=== PATIENT | female | born 1950 | race Caucasian/White ===

== ENCOUNTER 2022-05-01 07:47 | Emergency (ER) | payer OTHER ==
--- OUTSIDE RECORDS SUMMARY | 2022-05-01 08:01 | XMS REPORT | Continuity of Care Document ---
:1950 Author Organization [facility] t Address [facility] [place] [address] Care Team Providers Name Role Phone STEWART GRANDA Primary Care Physician Unavailable KJ GAMEZ K.HYamilka Attending Clinician Unavailable FARHAD MATOS Attending Clinician Unavailable FARHAD MATOS Attending Clinician Unavailable Kj Gamez MD K.H. Attending Clinician Doctor Unassigned, [place] Attending Clinician Unavailable DORINA LUIS M.D. Attending Clinician Unavailable RADIOLOGY Attending Clinician Unavailable Radiology Attending Clinician Unavailable MONIKA LAYNE M.D. Attending Clinician Unavailable DR JOCELYN DEL TORO Attending Clinician Unavailable DORINA LUIS Admitting Clinician Unavailable DR JOCELYN DEL TORO Admitting Clinician Unavailable Payers Payer Name Policy Type Policy Number Effective Date Expiration Date S kelly [employer] MANAGED [id number] 2020 MEDICARE PPO-RODRIGO 00:00:00 Problems Condition Condition Condition Status Onset Resolution Last Treating Co mments Source Name Details Category Date Date Treatment Clinician Date No known No known Disease Unive rs active active ity of problems problems [facility] Amaurosis Amaurosis Problem Active [facility] fugax of [place] of Physic i right eye right eye ans Blurry Blurry Problem Active [facility] vision vision Physici ans TIA TIA Problem Active [facility] (transient (transient Ph ysici ischemic ischemic ans attack) attack) Allergies, Adverse Reactions, Alerts Allergy Allergy Status Severity Reaction(s) Onset Inactive Treating Comm ents Source Name Type Date Date Clinician PROPOXYP DRUG Active Other-Cmnt Univ ers HENE HCL INGREDI 6-14 ity of 00:00: [place] 00 Medical Branch Propoxyp Propensi Active Other - See U nivers hene Hcl ty to comments 09-26 ity of adverse 00:00: [place] reaction 00 Medical s Branch Darvon Allergy Active [facility] to drug Physici (finding ans ) Social History Social Habit Start Date Stop Date Quantity Comments Source Exposure to Not sure [facility]-CoV-2 [facility] (event) [place] Tobacco use and 2020-07-20 2020-07-20 Never used Universit y of exposure 00:00:00 00:00:00 [facility] Alcohol intake 2020-07-20 2020-07-20 Current drinker Unive rsity of 00:00:00 00:00:00 of alcohol [facility] (finding) [place] Alcohol Comment 2016-09-26 2016-09-26 Approx. 3 Universit y of 00:00:00 00:00:00 glasses of wine [place] Med ical daily Branch Sex Assigned At [birth year] Universit y of 00:00:00 00:00:00 [facility] Smoking Status Start Date Stop Date Source Never smoker [facility] Medications Ordered Filled Start Stop Current Ordering Indication Dosage Frequency Signature Comments Components Source Medication Medication Date Date Medication? Clinician (SIG) Name Name lisinopril Yes 30mg Take 30 mg U nivers 30 mg 5-19 by mouth ity of tablet 14:48: daily. [address] lisinopril Yes 30mg Take 30 mg U nivers 30 mg 5-19 by mouth ity of tablet 14:48: daily. [address] aspirin 81 Yes 81mg Take 81 mg U nivers mg EC 5-19 by mouth ity of tablet 14:48: daily. [address] aspirin 81 Yes 81mg Take 81 mg U nivers mg EC 5-19 by mouth ity of tablet 14:48: daily. [address] omega-3s-dh Yes Take by Uni vers a-epa-fish 5-19 mouth. ity of oil 14:48: [place] (OMEGA-3 00 [facility] FISH OIL) Branch 300-1,000 mg Cap omega-3s-dh Yes Take by Uni vers a-epa-fish 5-19 mouth. ity of oil 14:48: [place] (OMEGA-3 00 Medical FISH OIL) Branch 300-1,000 mg Cap tc 2020- No [id number] 42.2mCi 42.2 Unive rs 99m-tetrofo 08-23 millicurie i ty of smin 17:15: 17:12 , [place] ([facility]) 00 :00 Intravenou Medi lila injection s, ONCE, 1 Bran ch 42.2 dose, Tue millicurie 08/23/20 at 1215, Routine tc 2020- No [id number] 16.5mCi 16.5 Univ ers 99m-tetrofo 08-23 millicurie i ty of smin 15:30: 15:20 , [place] ([facility]) 00 :00 Intravenou Medi lila injection s, ONCE, 1 Bran ch 16.5 dose, Tue millicurie 08/23/20 at 1030, Routine lisinopril Yes 30mg Take 30 mg U nivers 30 mg 4-07 by mouth ity of tablet 16:51: daily. [place] [facility] levothyroxi Yes 50ug Take 50 Uni vers ne 50 mcg 4-07 mcg by ity of tablet 16:51: mouth every Medical morning. Branch busPIRone Yes 10mg Take 10 mg Un drake 10 mg 4-07 by mouth 2 ity of tablet 16:51: (two) [place] 02 times Medical daily. Branch aspirin 81 0 Yes 81mg Take 81 mg U nivers mg EC 4-07 by mouth ity of tablet 16:51: daily. [place] [address] Medical Branch lisinopril Yes 30mg Take 30 mg U nivers 30 mg 4-07 by mouth ity of tablet 16:51: daily. [place] [address] Medical Branch levothyroxi Yes 50ug Take 50 Uni vers ne 50 mcg 4-07 mcg by ity of tablet 16:51: mouth 02 every Medical morning. Branch busPIRone Yes 10mg Take 10 mg Un drake 10 mg 4-07 by mouth 2 ity of tablet 16:51: (two) [place] 02 times Medical daily. Branch aspirin 81 0 Yes 81mg Take 81 mg U nivers mg EC 4-07 by mouth ity of tablet 16:51: daily. Medical Branch lisinopril 0 Yes 30mg Take 30 mg U nivers 30 mg 4-07 by mouth ity of tablet 16:51: daily. Medical Branch levothyroxi 0 Yes 50ug Take 50 Uni vers ne 50 mcg 4-07 mcg by ity of tablet 16:51: mouth [place] 02 every Medical morning. Branch busPIRone 0 Yes 10mg Take 10 mg Un drake 10 mg 4-07 by mouth 2 ity of tablet 16:51: (two) [place] 02 times Medical daily. Branch aspirin 81 0 Yes 81mg Take 81 mg U nivers mg EC 4-07 by mouth ity of tablet 16:51: daily. Medical Branch lisinopril 0 Yes 30mg Take 30 mg U nivers 30 mg 4-07 by mouth ity of tablet 16:51: daily. Medical Branch levothyroxi 0 Yes 50ug Take 50 Uni vers ne 50 mcg 4-07 mcg by ity of tablet 16:51: mouth [place] 02 every Medical morning. Branch busPIRone 0 Yes 10mg Take 10 mg Un drake 10 mg 4-07 by mouth 2 ity of tablet 16:51: (two) [place] 02 times Medical daily. Branch aspirin 81 0 Yes 81mg Take 81 mg U nivers mg EC 4-07 by mouth ity of tablet 16:51: daily. Medical Branch lisinopril 0 Yes 30mg Take 30 mg U nivers 30 mg 4-07 by mouth ity of tablet 16:51: daily. Medical Branch levothyroxi 0 Yes 50ug Take 50 Uni vers ne 50 mcg 4-07 mcg by ity of tablet 16:51: mouth [place] 02 every Medical morning. Branch busPIRone 2020-0 Yes 10mg Take 10 mg Un drake 10 mg 4-07 by mouth 2 ity of tablet 16:51: (two) [place] 02 times Medical daily. Branch aspirin 81 0 Yes 81mg Take 81 mg U nivers mg EC 4-07 by mouth ity of tablet 16:51: daily. Medical Branch lisinopril 2021-0 Yes 30mg Take 30 mg U nivers 30 mg 4-07 by mouth ity of tablet 16:51: daily. Medical Branch levothyroxi 0 Yes 50ug Take 50 Uni vers ne 50 mcg 4-07 mcg by ity of tablet 16:51: mouth [place] 02 every Medical morning. Branch busPIRone 0 Yes 10mg Take 10 mg Un drake 10 mg 4-07 by mouth 2 ity of tablet 16:51: (two) [place] 02 times Medical daily. Branch aspirin 81 0 Yes 81mg Take 81 mg U nivers mg EC 4-07 by mouth ity of tablet 16:51: daily. Medical Branch lisinopril 0 Yes 30mg Take 30 mg U nivers 30 mg 4-07 by mouth ity of tablet 16:51: daily. Medical Branch levothyroxi Yes 50ug Take 50 Uni vers ne 50 mcg 4-07 mcg by ity of tablet 16:51: mouth every Medical morning. Branch busPIRone 0 Yes 10mg Take 10 mg Un drake 10 mg 4-07 by mouth 2 ity of tablet 16:51: (two) [place] times Medical daily. Branch aspirin 81 0 Yes 81mg Take 81 mg U nivers mg EC 4-07 by mouth ity of tablet 16:51: daily. Medical Branch lisinopril Yes 30mg Take 30 mg U nivers 30 mg 4-07 by mouth ity of tablet 16:51: daily. Medical Branch levothyroxi Yes 50ug Take 50 Uni vers ne 50 mcg 4-07 mcg by ity of tablet 16:51: mouth [place] 02 every Medical morning. Branch busPIRone 0 Yes 10mg Take 10 mg Un drake 10 mg 4-07 by mouth 2 ity of tablet 16:51: (two) [place] 02 times Medical daily. Branch aspirin 81 0 Yes 81mg Take 81 mg U nivers mg EC 4-07 by mouth ity of tablet 16:51: daily. Medical Branch lisinopril 0 Yes 30mg Take 30 mg U nivers 30 mg 4-07 by mouth ity of tablet 16:51: daily. Medical Branch levothyroxi 0 Yes 50ug Take 50 Uni vers ne 50 mcg 4-07 mcg by ity of tablet 16:51: mouth [place] 02 every Medical morning. Branch busPIRone 0 Yes 10mg Take 10 mg Un drake 10 mg 4-07 by mouth 2 ity of tablet 16:51: (two) [place] 02 times Medical daily. Branch aspirin 81 2020-0 Yes 81mg Take 81 mg U nivers mg EC 4-07 by mouth ity of tablet 16:51: daily. Medical Branch lisinopril 0 Yes 30mg Take 30 mg U nivers 30 mg 4-07 by mouth ity of tablet 16:51: daily. Medical Branch levothyroxi 0 Yes 50ug Take 50 Uni vers ne 50 mcg 4-07 mcg by ity of tablet 16:51: mouth [place] 02 every Medical morning. Branch busPIRone 0 Yes 10mg Take 10 mg Un drake 10 mg 4-07 by mouth 2 ity of tablet 16:51: (two) [place] 02 times Medical daily. Branch aspirin 81 0 Yes 81mg Take 81 mg U nivers mg EC 4-07 by mouth ity of tablet 16:51: daily. Medical Branch levothyroxi 0 Yes 50ug Take 50 Uni vers ne 50 mcg 4-07 mcg by ity of tablet 16:51: mouth [place] 02 every Medical morning. Branch busPIRone 2020-0 Yes 10mg Take 10 mg Un drake 10 mg 4-07 by mouth 2 ity of tablet 16:51: (two) [place] 02 times Medical daily. Branch levothyroxi 2020-0 Yes 50ug Take 50 Uni vers ne 50 mcg 4-07 mcg by ity of tablet 16:51: mouth [place] 02 every Medical morning. Branch busPIRone 2020-0 Yes 10mg Take 10 mg Un drake 10 mg 4-07 by mouth 2 ity of tablet 16:51: (two) [place] 02 times Medical daily. Branch atorvastati 2020-0 Yes 40mg Take 40 mg Univers n 40 mg 2-08 by mouth. ity of tablet 00:00: [place] [facility] atorvastati 2020-0 Yes 40mg Take 40 mg Univers n 40 mg 2-08 by mouth. ity of tablet 00:00: [facility] atorvastati 0 Yes 40mg Take 40 mg Univers n 40 mg 2-08 by mouth. ity of tablet 00:00: [facility] atorvastati 0 Yes 40mg Take 40 mg Univers n 40 mg 2-08 by mouth. ity of tablet 00:00: [facility] atorvastati 2020-0 Yes 40mg Take 40 mg Univers n 40 mg 2-08 by mouth. ity of tablet 00:00: [facility] atorvastati 0 Yes 40mg Take 40 mg Univers n 40 mg 2-08 by mouth. ity of tablet 00:00: [place] [facility] atorvastati 0 Yes 40mg Take 40 mg Univers n 40 mg 2-08 by mouth. ity of tablet 00:00: [facility] atorvastati 0 Yes 40mg Take 40 mg Univers n 40 mg 2-08 by mouth. ity of tablet 00:00: [facility] atorvastati 0 Yes 40mg Take 40 mg Univers n 40 mg 2-08 by mouth. ity of tablet 00:00: [facility] atorvastati 0 Yes 40mg Take 40 mg Univers n 40 mg 2-08 by mouth. ity of tablet 00:00: [facility] atorvastati 0 Yes 40mg Take 40 mg Univers n 40 mg 2-08 by mouth. ity of tablet 00:00: [facility] atorvastati 0 Yes 40mg Take 40 mg Univers n 40 mg 2-08 by mouth. ity of tablet 00:00: [facility] gadobenate 0 2020- No .2mL/kg 0.2 mL/kg, Univers dimeglumine 07-14 Intravenou i ty of (MULTIHANCE 14:30: 14:30 s, ONCE, 1 [place] -20 mL) 00 :00 dose, Wed Medical injection 07/15/19 at Bran h 0.2 mL/kg 0930, Routine Lisinopril Lisinopril 2019-0 Yes 1 QD TAKE 1 UT 40 MG Oral 40 MG Oral 3-10 TABLET P hysici Tablet Tablet 00:00: DAILY ans 00 Levothyroxi Levothyroxi Yes 1 QD TAKE 1 UT ne Sodium ne Sodium 3-10 TABLET Phy sici 50 MCG Oral 50 MCG Oral 00:00: DAILY. ans Tablet Tablet 00 Atorvastati Atorvastati Yes DORINA TAKE ONE UT n Calcium n Calcium 3-10 RUSSEL [place] TABLET BY Physici 40 MG Oral 40 MG Oral 00:00: MOUTH AT ans Tablet Tablet 00 BEDTIME aspirin 81 Yes 81mg Take 81 mg U nivers mg EC 6-16 by mouth ity of tablet 15:53: daily. [address] lisinopril Yes 30mg Take 30 mg U nivers 30 mg 6-16 by mouth ity of tablet 15:53: daily. [address] levothyroxi Yes 50ug Take 50 Uni vers ne 50 mcg 6-16 mcg by ity of tablet 15:53: mouth [place] [address] every Medical morning. Branch busPIRone Yes 10mg Take 10 mg Un drake 10 mg 6-16 by mouth 2 ity of tablet 15:53: (two) [place] 35 times Medical daily. Branch aspirin 81 Yes 81mg Take 81 mg U nivers mg EC 6-16 by mouth ity of tablet 15:53: daily. [address] lisinopril Yes 30mg Take 30 mg U nivers 30 mg 6-16 by mouth ity of tablet 15:53: daily. [address] levothyroxi Yes 50ug Take 50 Uni vers ne 50 mcg 6-16 mcg by ity of tablet 15:53: mouth [place] [address] every Medical morning. Branch busPIRone 2017 Yes 10mg Take 10 mg Un drake 10 mg 6-16 by mouth 2 ity of tablet 15:53: (two) [place] 35 times Medical daily. Branch aspirin 81 Yes 81mg Take 81 mg U nivers mg EC 6-16 by mouth ity of tablet 15:53: daily. [address] lisinopril Yes 30mg Take 30 mg U nivers 30 mg 6-16 by mouth ity of tablet 15:53: daily. [address] levothyroxi Yes 50ug Take 50 Uni vers ne 50 mcg 6-16 mcg by ity of tablet 15:53: mouth [place] 35 every Medical morning. Branch busPIRone Yes 10mg Take 10 mg Un drake 10 mg 6-16 by mouth 2 ity of tablet 15:53: (two) [place] 35 times Medical daily. Branch aspirin 81 Yes 81mg Take 81 mg U nivers mg EC 6-16 by mouth ity of tablet 15:53: daily. [address] lisinopril Yes 30mg Take 30 mg U nivers 30 mg 6-16 by mouth ity of tablet 15:53: daily. [address] levothyroxi Yes 50ug Take 50 Uni vers ne 50 mcg 6-16 mcg by ity of tablet 15:53: mouth [place] 35 every Medical morning. Branch busPIRone Yes 10mg Take 10 mg Un drake 10 mg 6-16 by mouth 2 ity of tablet 15:53: (two) [place] 35 times Medical daily. Branch Vital Signs Vital Name Observation Time Observation Value Comments Source Systolic blood 2020-08-31 125 mm[Hg] University of pressure 14:45:00 [facility] Diastolic blood 2020-08-31 73 mm[Hg] University o f pressure 14:45:00 [facility] Heart rate 2020-08-31 65 /min [facility] 14:45:00 [facility] Respiratory rate 2020-08-31 18 /min [facility] 14:45:00 [facility] Body height 2020-08-31 165.1 cm University 14:45:00 [facility] Body weight 2020-08-31 111.403 kg University 14:45:00 [facility] BMI 2020-08-31 40.87 kg/m2 University 14:45:00 [facility] Oxygen saturation 2020-08-31 95 /min [facility] in Arterial blood 14:45:00 [facility] [place] [facility] by Pulse oximetry Branch Systolic blood 2020-07-20 124 mm[Hg] University of pressure 20:54:00 [facility] Diastolic blood 2020-07-20 85 mm[Hg] University o f pressure 20:54:00 [facility] Heart rate 2020-07-20 85 /min [facility] 20:54:00 [facility] Body weight 2020-07-20 111.177 kg University of 20:54:00 [facility] BMI 2020-07-20 40.79 kg/m2 [facility] 20:54:00 [facility] Oxygen saturation 2020-07-20 97 /min [facility] in Arterial blood 20:54:00 [facility] [place] [facility] by Pulse oximetry Branch Systolic blood 2019-06-23 98 mm[Hg] Location: [facility] Physicia ns pressure 08:31:00 Position: Sitting Diastolic blood 2019-06-23 65 mm[Hg] Location: [facility] Physici ans pressure 08:31:00 Position: Sitting Body height 2019-06-23 65 [in_us] [facility] 08:31:00 Weight 2019-06-23 245 [lb_av] [facility] 08:31:00 Body mass index 2019-06-23 40.77 kg/m2 [facility] Physician s (BMI) [Ratio] 08:31:00 Heart Rate 2019-06-23 76 /min [facility] 08:31:00 Procedures Procedure Date / Time Performing Clinician Source Performed [place] MYOCARDIUM PERFUSION 2020-08-23 18:52:00 Franco, Sendmarycarmen [facility] STRESS AND REST Medical Branch NM MYOCARDIUM PERFUSION 2020-08-23 18:52:00 Gamez, Sendil [facility] STRESS AND REST Medical Branch [place] MYOCARDIUM PERFUSION 2020-08-23 18:52:00 Gamez, Sendil [facility] STRESS AND REST Medical Branch [place] MYOCARDIUM PERFUSION 2020-08-23 18:52:00 Gamez, Sendil [facility] STRESS AND REST Medical Branch [place] ELECTROCARDIOGRAM, 2020-07-20 16:55:18 Franco, [facility]il [facility] REFERRAL- 2020-06-20 06:01:00 [facility] REQUEST[facility]RESPONSE Name Medical Branch MR ANGIOGRAM HEAD WO 2019-09-10 15:22:39 Dorina Luis [facility] CONTRAST Medical Branch ASSIGNMENT OF BENEFITS 2019-09-10 14:26:53 Doctor Unassigned, No [facility] Name [facility] Branch [QL] LIPID PANEL 2019-07-29 00:00:00 [facility] Physicia ns MR BRAIN W WO CONTRAST 2019-07-15 15:12:44 Dorina Luis [facility] [UTP] Neurosonology Lab 2019-06-23 00:00:00 [facility] P hysicians [QLH] SED RATE BY 2019-06-23 00:00:00 [facility] Physici ans MODIFIED WESTERGREN [QLH] C-REACTIVE PROTEIN 2019-06-23 00:00:00 [facility] MRI Brain w/wo contrast 2019-06-23 00:00:00 [facility] P hysicians [id number] MRA Brain without 2019-06-23 00:00:00 [facility] Physici ans contrast [id number] [QL] SED RATE BY 2019-06-23 00:00:00 [facility] Physicia ns MODIFIED WESTERGREN Plan of Care Planned Activity Planned Date Details Comments Source Diagnostic Test 2019-06-23 [UTP] Neurosonology [facility] Pending 00:00:00 Lab [code = [UTP] Neurosonology Lab] Future Scheduled MRA Brain without Before next [facility] Test contrast [id number] [code appointment = 24738] Future Scheduled MRA Brain without Approx [id number] [facility] Test contrast [id number] [code = 28302] Future Scheduled [QL] LIPID PANEL Approx [id number] [facility] Test [code = [QL] LIPID PANEL] Future Scheduled [QL] LIPID PANEL Approx [id number] [facility] Test [code = [QL] LIPID PANEL] Encounters Start End Encounter Admission Attending Care Care Encounter Source Date/Time Date/Time Type Type Clinicians Facility Department ID 2021-08-31 2021-08-31 Outpatient Chelsea GAMEZ [facility] [id number] Univers 10:00:00 10:00:00 SENDIL [facility] [place] [facility] 2021-08-15 2021-08-15 Outpatient Chelsea GAMEZ [facility] [id number] Univers 09:00:00 09:00:00 [facility] 2020-12-02 2020-12-02 Outpatient FARHAD GRAYSON [facility] [id number] Univers 13:00:00 13:00:00 FARHAD MATOS i ty [facility] 2020-10-14 2020-10-14 Outpatient R FARHAD MATOS [facility] [id number] Univers 09:00:00 09:00:00 FARHAD MATOS i ty [facility] 2020-08-31 2020-08-31 Office Franco [facility] [id number] Univers 09:36:47 10:08:58 Visit Sendil [place] [id number] it[place] [id number] [phone] Mn dical [facility] 059 Branch [facility] 2020-08-31 2020-08-31 [facility] [id number] Univers 09:30:00 09:30:00 SENDIL ity of [facility] 2020-08-23 2020-08-23 [facility] [id number] Univers 09:05:51 09:05:51 Encounter Sendil Andrew [place] [id number] [id number] [phone] [address] 2020-08-23 2020-08-23 [facility] [id number] Univers 09:04:58 09:04:58 Encounter Sendil Andrew [place] [id number] [place] [id number] [id number] [address] 2020-08-23 2020-08-23 [facility] [id number] Univers 09:03:22 09:03:22 Encounter Sendil Adnrew [place] [id number] it[place] [id number] [phone] [address] 2020-08-23 2020-08-23 [facility] [id number] Univers 08:59:35 09:02:00 Encounter Sendil Andrew [place] [id number] [place] [id number] [phone] [address] 2020-08-23 2020-08-23 Outpatient [facility] [id number] Univers 08:59:35 09:02:00 SENDIL ity of [facility] 2020-08-10 2020-08-10 [facility] [id number] Univers 08:00:00 08:00:00 SENDIL ity [facility] 2020-07-29 2020-07-29 [facility] [id number] Univers 00:00:00 00:00:00 Sendil Adnrew Valderrama [id number] [id number] [phone] Mn dical nal [address] [place] [address] 2020-07-20 2020-07-20 [facility] [id number] Univers 11:43:06 12:24:34 Visit Sendil Andrew Valderrama [id number] [place] [id number] [phone] Mn dical nal [address] [place] [address] 2020-07-20 2020-07-20 Outpatient R FRANCO [facility] [id number] Univers 11:30:00 11:30:00 SENDIL ity [facility] 2020-06-20 2020-06-20 Orders Doctor OSMAR [id number] Univers 00:00:00 00:00:00 Only Unassigned, [place] [id number] ity of [place] [facility] [id number] Paul as [phone] [address] 2020-06-19 2020-06-19 Outpatient [facility] [id number] Univers 13:30:00 13:30:00 ity of [facility] 2019-11-03 2019-11-03 Appointmen RUSSEL [facility] Neurology - [id number] [place] 14:30:00 14:30:00 t; DORINA LUIS [place] [facility] CHRISTINA, M.D. [facility] 2019-09-10 2019-09-10 Outpatient R RADIOLOGY [facility] [id number] Univers 09:33:46 23:59:00 ity of [facility] 2019-09-10 2019-09-10 Hospital Radiology [facility] [id number] Univers 09:33:00 23:59:00 Encounter [place] [id number] it[place] [id number] [phone] [facility] 804 [place] 2019-09-10 2019-09-10 [facility] Radiology [facility] [id number] 09:33:00 23:59:00 Encounter [place] [id number] [place] [id number] [place] [id number] [id number] 2019-09-10 2019-09-10 Orders Doctor OSMAR 1.2.840.114 [id number] Univers 00:00:00 00:00:00 Only Unassigned, [place] [id number] [address] [place] [facility] [id number] [place] as [phone] [address] 2019-09-10 2019-09-10 Orders Doctor OSMAR [id number] 00:00:00 00:00:00 Only Unassigned, [place] [id number] [place] [facility] [id number] [id number] 2019-07-29 2019-07-29 Appointmen BENITO LUIS Neurology - [id number] [place] 09:30:00 09:30:00 t; DORINA LUIS [facility] Clare ginette BARROS M.D. [facility] Evaristo Maxwell 2019-07-15 2019-07-15 Outpatient R RADIOLOGY [facility] [id number] Univers 09:04:33 23:59:00 ity of [facility] 2019-07-15 2019-07-15 Hospital Radiology [facility] [id number] 09:00:00 23:59:00 Encounter [place] [id number] [place] [id number] [place] [id number] [id number] 2019-07-15 2019-07-15 Hospital Radiology [facility] [id number] Univers 09:00:00 23:59:00 Encounter [place] [id number] [place] [id number] [id number] [facility] 804 Branch 2019-06-23 2019-06-23 Appointmen ROVERTO BENITO Neurology - [id number] [place] 10:00:00 10:00:00 t; Cecelia FRANK i, M.D. Medical Deanne Grey M.D. 2019-06-23 2019-06-23 Appointmen RUSSELBENITO Neurology - [id number] [place] 08:00:00 08:00:00 t; DORINA LUIS [place] [facility] CHRISTINA, M.D. Medical ans Evaristo Maxwell 2018-05-21 2018-05-21 Emergency E ALVERTO, [facility] [id number] [facility] 17:27:00 19:30:00 [facility] Results Test Description Test Time Test Results Result Source Comments Comments NM MYOCARDIUM 2020-08-13 Impression: Normal Uni versity of PERFUSION STRESS 1 myocardial perfusion [facility] AND REST 22:48:55 scan with preserved Bran h ejection fraction andnormal wall thickening.I was present for the stress procedure.Pharmacologi lila stress myocardial perfusion imaging report Type: Technetium 99 labeled Myoview rest/stress single isotope SPECTimaging with Ragadenoson pharmacological stress and gated SPECT imaging. Indication: chest pain Clinical history: hypertension, hyperlipidemia Procedure: Pharmacological stress test was performed with a bolus dose of 0.4 mg ofRagadenoson. Gated myocardial perfusion imaging was performed at restfollowing the injection of 16.5 millicuries of technetium labeled Myoviewand post stress following the injection of 42.2 millicuries of technetiumlabeled tetrofosmin. Findings: The overall quality of the study was good. Stress EKG revealed no inducible ischemia, reported separately. SPECT images demonstrate homogeneous tracer distribution throughout themyocardium. TID ratio 1.0. Gated SPECT images demonstrate normal wall motion and myocardialthickening. Stress Values: ?EDV = 53 mL; ESV = 14 mL; EF = 75%.Rest Values: ?EDV = 65 mL; ESV = 19 mL; EF = 71%. [facility], Radiant Results Inft User - 08/23/2020 5:50 PM CDTPharmacological stress myocardial perfusion imaging reportType: Technetium 99 labeled Myoview rest/stress single isotope SPECTimaging with Ragadenoson pharmacological stress and gated SPECT imaging.Indication: chest painClinical history: hypertension, hyperlipidemiaProcedur e:Pharmacological stress test was performed with a bolus dose of 0.4 mg ofRagadenoson. Gated myocardial perfusion imaging was performed at restfollowing the injection of 16.5 millicuries of technetium labeled Myoviewand post stress following the injection of 42.2 millicuries of technetiumlabeled tetrofosmin.Findings:T he overall quality of the study was good.Stress EKG revealed no inducible ischemia, reported separately. SPECT images demonstrate homogeneous tracer distribution throughout themyocardium. TID ratio 1.0.Gated SPECT images demonstrate normal wall motion and myocardialthickening.S tress Values: EDV = 53 mL; ESV = 14 mL; EF = 75%.Rest Values: EDV = 65 mL; ESV = 19 mL; EF = 71%.IMPRESSIONImpressi on: Normal myocardial perfusion scan with preserved ejection fraction andnormal wall thickening.I was present for the stress procedure. [QL] LIPID PANEL 2019-09-30 00:00:00 Test Item Value Reference Range Interpretation Comme nts CHOLESTEROL, TOTAL; Normal 132 mg/dl <200 N S PECIMEN RECEIVED DATE AND (test code = 2092-) TIME: 40877691706 HDL CHOLESTEROL; Normal (test 60 mg/dl > OR = 50 N SPECIMEN RECEIVED DATE AND code = 2084-9) TIME: 20190914 TRIGLYCERIDES; Normal (test 79 mg/dl <150 N SPECIMEN RECEIVED DATE AND code = 2571-8) TIME: [id number] LDL-CHOLESTEROL; Normal (test 56 {MG/DL LILA} N Reference range: <100 code = 84643-0) Desirable ra nge <100 mg/dL for primary pre vention; <70 mg/dL for patie nts with CHD or diabetic pat ients with > or = 2 CHD risk factors. LDL-C is now ca lculated using the Gaurav ins calculation, wh ich is a validated novel method providing clifton r accuracy than the Friede augustus equation in the estimati on of LDL-C. Jeffrey SS et al . NANDA. 2013;310(02): 8 06-1917 (http://educati on.QuestDiagno stics.Anda/faq/F AQ164)SPECIMEN RECEIVED DATE A ND TIME: CHOL/HDLC RATIO (test code = 2.2 {CALC} <5.0 N SPECIMEN RECEIVED DATE AND CHOL/HDLC RATIO) TIME: [id number] NON HDL CHOLESTEROL (test 72 {MG/DL LILA} <130 N For patients with diabetes code = NON HDL CHOLESTEROL) plus 1 major ASCVD risk factor, treatin g to a non-HDL-C goal of <100 mg/dL (LDL-C of <70 m g/dL) is considered a th erapeutic option.SPECIMEN RECEIVED DATE AND TIME: 61710121 [facility] ANGIOGRAM HEAD WO [id number] 16:45:26 No high-grade stenosis or aneurysm in the intracranial vessels. Of note, no imaging of the neck wasobtained. The extracranial vessels canalso be a potential source of emboli which may result in patient'ssymptoms. Preliminary Report Dictated by Resident: Selvin Yung I, Osmar Kohli MD., have reviewed this study and agree with theabove report.EXAM: MR ANGIOGRAM HEAD WO CONTRAST TECHNIQUE: Mu ltiplanar multisequence MRI of the brain was performed withoutIV contrast. HISTORY: Amaurosis fugax of right eye, TIA COMPARISON: MRI 07/15/2019 TECHNIQUE: 3-D ogfi-rg-usicyx of the head was performed without theadministration of IV gadolinium. FINDINGS: The PICA origins are visualized bilaterally. The basilar artery is normalin caliber. The superior cerebellar arteries are unremarkable. originofthe right INSTRUMENTATION DESIGNER is noted. The left INSTRUMENTATION DESIGNER is patent. A left posteriorcommunicating artery is faintly visualized. The distal cervical, petrous, cavernous and supraclinoid internal carotidarteries are patent.The anterior and middle cerebral arteries are widelypatent. ?An anterior communicating artery is visualized. No parenchymal signal abnormalities are visualized on the included portionsof the source images. A prominent perivascular space in the leftparahippocampal region is unchanged. [facility], Radiant Results Inft User - 09/10/2019 11:46 AM CDTEXAM: MR ANGIOGRAM HEAD WO CONTRASTTECHNIQUE: Multiplanar multisequence MRI of the brain was performed withoutIV contrast.HISTORY: Amaurosis fugax of right eye, TIACOMPARISON: MRI 07/15/2019TECHNIQUE: 3-D urzc-qu-jmbrzm of the head was performed without theadministration of IV gadolinium.FINDINGS:The PICA origins are visualized bilaterally. The basilar artery is normalin caliber. The superior cerebellar arteries are unremarkable. originof the right INSTRUMENTATION DESIGNER is noted. The left INSTRUMENTATION DESIGNER is patent. A left posteriorcommunicating artery is faintly visualized.The distal cervical, petrous, cavernous and supraclinoid internal carotidarteries are patent. The anterior and middle cerebral arteries are widelypatent. An anterior communicating artery is visualized.No parenchymal signal abnormalities are visualized on the included portionsof the source images. A prominent periva scular space in the leftparahippocampal region is unchanged. IMPRESSIONNo high- grade stenosis or aneurysm in the intracranial vessels. Of note, no imaging of the neck was obtained. The extracranial vessels canalso be a potential source of emboli which may result in patient'ssymptoms.Preliminary ReportDictated by Resident: Selvin Gipson, Osmar Kohli MD., have reviewed this study and agree with theabove report.[facility] W WO [id number] 15:59:33 No acute intracranial findings. Preliminary Report Dictated by Resident: Felix Mcdermott MD., have reviewed this study and agree with theabove report.MR BRAIN W WO CONTRAST COMPARISON: None HISTORY: Right eye amaurosis fugax TECHNIQUE: Multisequence multiplanar MR images of the brain were obtainedbefore and after administration of IV contrast. 20 mL of Multihanceintravenous. FINDINGS: The ventricles and cerebral sulci are normal in caliber and configuration.No midline shift, hydrocephalus or pathological extra-axial fluidcollection is present. The basal cisterns are unremarkable. No restricted diffusion is present to suggest acute infarct. Mild deep andperiventricular T2/FLAIR hyperintensities noted in the deep and to a lesserextent subcortical white matter. Tiny focus also in the left cerebellum.Findings are nonspecific but likely reflect chronic small vessel ischemicchanges. No abnormal parenchymal enhancement is present. No abnormalgradient blooming. Partial empty sella configuration is incidentally noted. The T2 flow voids for the major intracranial vessels areunremarkable. Mildmucoperiosteal thickening of the ethmoid air cells on the left. Remainderof the paranasal sinuses and mastoid air cells are clear. [facility], Radiant Results Inft User - 07/15/2019 11:01 AM CDTMR BRAIN W WO CONTRASTCOMPARISON: NoneHISTORY: Right eye amaurosis fugax TECHNIQUE: Multisequence multiplanar MR images of the brain were obtainedbefore and after administration of IV contrast. 20 mL of Multihanceintravenous. FINDINGS:The ventricles and cerebral sulci are normal in caliber and configuration.No midline shift, hydrocephalus or pathological extra-axial fluidcollection is present. The basal cisterns are unremarkable.No restricted diffusion is present to suggest acute infarct. Mild deep andperiventricular T2/FLAIR hyperintensities noted in the deep and to a lesserextent subcortical white matter. Tiny focus also in the left cerebellum.Findings are nonspecific but likely reflect chronic small vessel ischemicchanges. No abnormal parenchymal enhancement is present. No abnormalgradientblooming. Partial empty sella configuration is incidentally noted.The T2 flow voids for the major intracranial vessels are unremarkable. Mildmucoperiosteal thickening of the ethmoid air cells on the left. Remainderof the paranasal sinuses and mastoid air cells are clear.IMPRESSIONNo acute intracranialfindings.Preliminary Report Dictated by Resident: Felix Hernandez MD., have reviewed this study and agree with theabove report.[facility]] SED RATE BY MODIFIED [id number] 14:10:01 Test Item Value Reference Range Interpretation Comments Sedimentation Rate (test code = 20 {mm/hr} 0-20 28963-8) [facility]] C-REACTIVE [id number] 13:55:01 Test Item Value Reference Range Interpretation Comments CRP (test code = CRP) 9.9 mg/L <=2.9 [facility]iciansCT HEAD W/O CONTRAST *WW*2018-05-21 18:50:17EXAM: CT head without contrastLocation: A1 COMPARISON: NoneINDICATION: FallsTECHNIQUE: Axial images of the brain were performed with 5 mm slices. Imageswere reviewed in brain and bone windows. Coronal and sagittal reformattedimages were performed.DISCUSSION:No intracranial mass, hemorrhage, hydrocephalus, midline shift, or herniationis seen. No abnormal attenuation is seen. No calvarial fracture or scalpcontusion is identified. Included portions of the orbits are unremarkable. The visualized paranasal sinuses are unremarkable.IMPRESSION:1. No acute intracranial abnormalities.2. No fracture or scalpcontusionPlease see the separate report for the cervical spine CT below.One or more of the following dose reduction techniques were used: Automatedexposure control, adjustment of the mA and/or kV according to patient size,and/or utilization of iterative reconstruction technique.DLP: 990 mGy-cm CTDI 56mGyEXAM: CT cervical spine without contrastLocation: A1 INDICATION FallsTECHNIQUE: Axial 2.5 mm images of the cervical spine were obtained without IVcontrast. Coronal and sagittal reformats were performed.COMPARISON: NoneDISCUSSION:No fracture is seen. Included adjacent soft tissues of the posterior fossa,neck, airway, and upper thorax are unremarkable.Degenerative changes consist of disc space narrowing at C5-6 and C6-7,uncovertebral joint arthrosis at C3-4 and C5-6, and facet arthrosis on the leftat C2-3 and C3-4. There is a suspected central disc protrusion or annular bulgeat C5-6 and C6-7. Central stenosis appears moderate at C5-6. Bony foraminalnarrowing is moderate to severe on the left at C3-4 and moderate bilaterally atC5-6.IMPRESSION: 1. No acute bony abnormalities.2. Cervical spine degenerative changes as described.One or more of the following dose reduction techniques were used: Automatedexposure control, adjustment of the mA and/or kV according to patient size,and/or utilization of iterative reconstruction technique.DLP: 368 mGy-cm CTDI 17 mGyCT CERVICAL SPINE W/O CONTRAST *WW*2018-05-21 18:50:17EXAM: CT head without contrastLocation: A1 COMPARISON: NoneINDICATION: FallsTECHNIQUE: Axial images of the brain were performed with 5 mm slices. Imageswere reviewed in brain and bone windows. Coronal and sagittal reformattedimages were performed.DISCUSSION:No intracranial mass, hemorrhage, hydrocephalus, midline shift, or herniationis seen. No abnormal attenuation is seen. No calvarial fracture or scalpcontusion is identified. Included portions of the orbits are unremarkable. The visualized paranasal sinuses are unremarkable.IMPRESSION:1. No acute intracranial abnormalities.2. No fracture or scalpcontusionPlease see the separate report for the cervical spine CT below.One or more of the followingdose reduction techniques were used: Automatedexposure control, adjustment of the mA and/or kV according to patient size,and/or utilization of iterative reconstruction technique.DLP: 990 mGy-cm CTDI 56mGyEXAM: CT cervical spine without contrastLocation: A1 INDICATION FallsTECHNIQUE: Axial 2.5 mm images of the cervical spine were obtained without IVcontrast. Coronal and sagittal reformats were performed.COMPARISON: NoneDISCUSSION:No fracture is seen. Included adjacent soft tissues of the posterior fossa,neck, airway, and upper thorax are unremarkable.Degenerative changes consist of disc space narrowing at C5-6 and C6-7,uncovertebral joint arthrosis at C3-4 and C5-6, and facet arthrosis on the leftat C2-3 and C3-4. There is a suspected central disc protrusion or annular bulgeat C5-6 and C6-7. Central stenosis appears moderate at C5-6. Bony foraminalnarrowing is moderate to severe on the left at C3-4 and moderate bilaterally atC5-6.IMPRESSION: 1. No acute bony abnormalities.2. Cervical spine degenerative changes as described.One or more of the following dose reduction techniques were used: Automatedexposure control, adjustment of the mA and/or kV according to patient size,and/or utilization of iterative reconstruction technique.DLP: 368 mGy-cm CTDI 17 mGyXR FOREARM LEFT AP & LAT 2018-05-21 18:42:36EXAM: Left forearm series, 2 viewsLocation: [id number]: PainCOMPARISON: None.DISCUSSION: Frontal and lateral views of the left forearm are submitted. Nofracture, dislocation, or lytic or blastic lesions are identified. IMPRESSION: No acute bony abnormalities.XR ELBOW LFT COMPLETE 3 VIEWS2018-05-21 18:41:58EXAM: Left elbow series, 3 viewsLocation: [id number]: FallsCOMPARISON: None.DISCUSSION: Frontal, oblique, and lateral views of the left elbow aresubmitted. No fracture, dislocation, or lytic or blastic lesions areidentified. No joint effusion is seen.IMPRESSION: No acute bony abnormalities.XR KNEE LEFT 3 VIEWS *WW*2018-05-21 18:37:58EXAM: Left knee series, 3 viewsLocation: [id number]: FallsCOMPARISON: None.DISCUSSION: Frontal, oblique, and crosstable lateral views of the left knee aresubmitted. No fracture, dislocation, or lyticor blastic lesions areidentified. No joint effusion is seen. A small quadriceps insertionenthesophyte is identified.
--- NOTE | 2022-05-01 08:26 | RAD REPORT ---
EXAM DESCRIPTION: RADSacrum And Coccyx05/01/2022 8:18 am CLINICAL HISTORY: Back pain FINDINGS: No fracture is seen
--- NOTE | 2022-05-01 08:29 | EDPHYS ---
Physician Documentation [facility] Name: Eugenia Duran Age: 72 yrs Sex: Female : 1950 Arrival Date: 05/01/2022 Time: 07:49 Bed 13 Private MD: Slim Burr E ED Physician Sudarshan Berrios HPI: 05/01 08:36 This 72 yrs old Female presents to ER via Ambulatory with complaints of Fall Injury - kb tailbone pain. 08:36 Details of fall: The patient fell from an upright position, while walking. Onset: The kb symptoms/episode began/occurred 2 day(s) ago. Associated injuries: The patient sustained sacrum, painful injury. Severity of symptoms: At their worst the symptoms were moderate, in the emergency department the symptoms are unchanged. The patient has not experienced similar symptoms in the past. The patient has not recently seen a physician. Pt reports she fell directly to buttocks on Saturday. c/o pain to tailbone since then. "I just need an x-ray to see if it is broken.". Historical: - Allergies: 08:02 No Known Allergies; kc6 - Home Meds: 08:02 levothyroxine oral [Active]; Aspirin Oral [Active]; kc6 - PMHx: 08:02 Hypertensive disorder; Hypothyroidism; kc6 - PSHx: 08:02 hyserectomy; tubal ligation; kc6 - Immunization history:: Client reports receiving the 2nd dose of the Covid vaccine, Flu vaccine is not up to date. - Social history:: Smoking status: Patient denies any tobacco usage or history of. ROS: 08:36 Constitutional: Negative for fever, chills, and weight loss. kb 08:36 Back: Positive for pain at rest, pain with movement, of the sacrum. 08:36 All other systems are negative. Exam: 08:36 Constitutional: This is a well developed, well nourished patient who is awake, alert, kb and in no acute distress. Head/Face: Normocephalic, atraumatic. ENT: Moist Mucous membranes Cardiovascular: Regular rate and rhythm with a normal S1 and S2. No gallops, murmurs, or rubs. No pulse deficits. Respiratory: Respirations even and unlabored. No increased work of breathing. Talking in full sentences Abdomen/GI: Soft, non-tender. No distention Skin: Warm, dry with normal turgor. Normal color. MS/ Extremity: Pulses equal, no cyanosis. Neurovascular intact. Full, normal range of motion. Neuro: Awake and alert, GCS 15, oriented to person, place, time, and situation. Moves all extremities. Normal gait. Psych: Awake, alert, with orientation to person, place and time. Behavior, mood, and affect are within normal limits. 08:36 Back: vertebral tenderness, is appreciated at sacrum and coccyx. Vital Signs: 08:01 BP 124 / 82; Pulse 68; Resp 18 S; Temp 98.3(O); Pulse Ox 96% on R/A; Weight 100.24 kg kc6 (R); Height 5 ft. 4 in. (162.56 cm) (R); Pain 9/10; 08:01 Body Mass Index 37.93 (100.24 kg, 162.56 cm) kc6 MDM: 07:50 Patient medically screened. kb 08:28 Data reviewed: vital signs, nurses notes. kb 08:34 Differential diagnosis: contusion, fracture, strain. I considered the following kb discharge prescriptions or medication management in the emergency department I discussed and recommended Over The Counter medications. Test considered but Not performed: Other Details CT considered, but would not change the treatment plan. Pt in agreement and will return for worsening pain . Counseling: I had a detailed discussion with the patient and/or guardian regarding: the historical points, exam findings, and any diagnostic results supporting the discharge/admit diagnosis, radiology results, the need for outpatient follow up, a family practitioner, to return to the emergency department if symptoms worsen or persist or if there are any questions or concerns that arise at home. 05/01 07:53 Order name: Sacrum And Coccyx XRAY; Complete Time: 08:27 kb Administered Medications: No medications were administered Disposition: 12:49 Co-signature as Attending Physician, Sudarshan Berrios MD I reviewed the patient's care rt provided by the Advanced Practice Provider and agree with the diagnosis and treatment plan. Disposition Summary: 05/01/22 08:28 Discharge Ordered Location: Home Condition: Stable kb Diagnosis - Low back pain kb Followup: kb - With: Emergency Department - When: As needed - Reason: Worsening of condition Followup: kb - With: Private Physician - When: 2 - 3 days - Reason: Recheck today's complaints, Continuance of care, Re-evaluation by your physician Discharge Instructions: - Discharge Summary Sheet kb - Musculoskeletal Pain kb Forms: - Medication Reconciliation Form kb - Thank You Letter kb - Antibiotic Education kb - Prescription Opioid Use kb Prescriptions: - Diclofenac Sodium 75 mg Oral tablet,delayed release (DR/EC) - take 1 tablet by ORAL route 2 times per day As needed; 30 tablet; Refills: 0, kb Product Selection Permitted Signatures: Dispatcher [employer] EDShari Gonzalez, TANYA-C TANYA-Gregoria Luciano, RN RN kc6 Sudarshan Berrios MD MD rt
--- NOTE | 2022-05-01 08:29 | ER ---
Nurse's Notes [facility] Name: Eugenia Duran Age: 72 yrs Sex: Female : 1950 Arrival Date: 05/01/2022 Time: 07:49 Bed 13 Private MD: Slim Burr E Diagnosis: Low back pain Presentation: 05/01 08:01 Chief complaint: Patient states: she fell onto her buttocks on Saturday. denies LOC. kc6 Coronavirus screen: Vaccine status: Patient reports receiving the 2nd dose of the covid vaccine. At this time, the client does not indicate any symptoms associated with coronavirus-19. Ebola Screen: No symptoms or risks identified at this time. Initial Sepsis Screen: Does the patient meet any 2 criteria? No. Patient's initial sepsis screen is negative. Does the patient have a suspected source of infection? No. Patient's initial sepsis screen is negative. Risk Assessment: Do you want to hurt yourself or someone else? Patient reports no desire to harm self or others. Onset of symptoms was April 29, 2022. 08:01 Method Of Arrival: Ambulatory [facility] 08:01 Acuity: RAMOS 4 kc6 Triage Assessment: 08:03 General: Appears in no apparent distress. uncomfortable, Behavior is calm, cooperative, kc6 appropriate for age. Pain: Complains of pain in coccyx Pain does not radiate. Pain currently is 9 out of 10 on a pain scale. Quality of pain is described as sharp, stabbing, Pain began 2-3 days ago. Is continuous, Alleviated by nothing. Aggravated by increased activity, repositioning, Noted to be resistant to movement, Also complains of no other associated symptoms. EENT: No signs and/or symptoms were reported regarding the EENT system. Neuro: Haider Agitation-Sedation Scale (RASS): 0 - Alert and Calm Level of Consciousness is awake, alert, obeys commands, Oriented to person, place, time, situation, Appropriate for age. Cardiovascular: Heart tones S1 S2 present Capillary refill < 3 seconds. Respiratory: Airway is patent Trachea midline Respiratory effort is even, unlabored, Respiratory pattern is regular, symmetrical, Breath sounds are clear bilaterally. GI: No signs and/or symptoms were reported involving the gastrointestinal system. : No signs and/or symptoms were reported regarding the genitourinary system. Derm: No signs and/or symptoms reported regarding the dermatologic system. Skin is intact, Skin is pink, warm \T\ dry. Musculoskeletal: No signs and/or symptoms reported regarding the musculoskeletal system. Circulation, motion, and sensation intact. Capillary refill < 3 seconds, Range of motion: intact in all extremities. Historical: - Allergies: 08:02 No Known Allergies; [facility] - Home Meds: 08:02 levothyroxine oral [Active]; Aspirin Oral [Active]; [facility] - PMHx: 08:02 Hypertensive disorder; Hypothyroidism; [facility] - PSHx: 08:02 hyserectomy; tubal ligation; [facility] - Immunization history:: Client reports receiving the 2nd dose of the Covid vaccine, Flu vaccine is not up to date. - Social history:: Smoking status: Patient denies any tobacco usage or history of. Screenin:05 [facility] ED Fall Risk Assessment (Adult) History of falling in the last 3 months, [facility] including since admission Yes- single mechanical fall (1 pt) Confusion or Disorientation No (0 pts) Intoxicated or Sedated No (0 pts) Impaired Gait No (0 pts) Mobility Assist Device Used No (0 pt) Altered Elimination No (0 pt) Score/Fall Risk Level 0 - 2 = Low Risk Oriented to surroundings, Maintained a safe environment, Educated pt \T\ family on fall prevention, incl call for assistance when getting out of bed, Assessed \T\ reinforced patient's understanding of fall precautions, Hourly rounding (assess needs \T\ fall precautionary measures) done. Abuse screen: Denies threats or abuse. Denies injuries from another. Nutritional screening: No deficits noted. Tuberculosis screening: No symptoms or risk factors identified. Assessment: 08:05 Reassessment: please see triage assessment. [facility] Vital Signs: 08:01 BP 124 / 82; Pulse 68; Resp 18 S; Temp 98.3(O); Pulse Ox 96% on R/A; Weight 100.24 kg [facility] (R); Height 5 ft. 4 in. (162.56 cm) (R); Pain 9/10; 08:01 Body Mass Index 37.93 (100.24 kg, 162.56 cm) [facility] ED Course: 07:49 Patient arrived in ED. as 07:49 Slim Burr MD is Private Physician. as 07:50 Shari Parker FNP-C is [facility]. kb 07:50 Sudarshan Berrios MD is Attending Physician. kb 07:53 Gregoria Caro, RN is Primary Nurse. kc6 08:02 Triage completed. kc6 08:05 Patient has correct armband on for positive identification. Bed in low position. Call kc6 light in reach. Side rails up X 1. 08:05 Arm band placed on. kc6 08:20 Sacrum And Coccyx XRAY In Process Unspecified. EDMS 08:32 No provider procedures requiring assistance completed. Patient did not have IV access kc6 during this emergency room visit. Administered Medications: No medications were administered Medication: 08:32 VIS not applicable for this client. kc6 Outcome: 08:28 Discharge ordered by . kb 08:32 Discharged to home ambulatory. kc6 08:32 Condition: stable 08:32 Discharge instructions given to patient, Instructed on discharge instructions, follow up and referral plans. medication usage, Demonstrated understanding of instructions, follow-up care, medications, Prescriptions given X 1. 08:32 Patient left the ED. kc6 Signatures: Dispatcher [employer] EDDE Shari Parker FNP-C [employer]-Shannon Vizcarra as Gregoria Caro, RN RN kc6
[2022-05-01 08:37] VITALS: BP 124/82; TEMP 98.3; O2SAT 96
== END 2022-05-01 08:32 | disposition home or self-care (01) ==
LOC: ER 07:47
DX: M54.50 Low back pain, unspecified (principal)
CPT/HCPCS: 72220

== ENCOUNTER 2022-05-31 09:25 | Observation (INO) | payer OTHER, BC ==
[2022-05-29 15:04] LABS: Specific Gravity 1.011 (1.005-1.030); Urine Bacteria None Seen /HPF (<20); Urine Bilirubin NEGATIVE (Negative); Urine Blood Negative (Negative); Urine Clarity Clear (Clear); Urine Color Light-Yellow (Yellow); Urine Glucose NEGATIVE (Negative); Urine Mucus Slight /HPF (None Seen); Urine Protein NEGATIVE (Negative); Urine Urobilinogen Normal (Normal)
[2022-05-29 15:50] LABS: SARS-CoV-2 Antigen Rapid Res Negative (Negative)
[2022-05-30 09:23] LABS: Absolute Lymphocytes (CBC) 1.4 K/uL (0.7-4.9); Hematocrit 37.1 % (36.0-45.0); Lymphocytes % 18.4 % (15.3-44.8); MCV 92.6 fL (80-100); MPV 7.6 fL (7.6-11.3); RBC Red Blood Cell Count 4.01 M/uL (3.86-4.86)
[~2022-05-31 09:25] MED LIST: CEFAZOLIN 3 GM in NA CHLORIDE 0.9% 100 ML IVPB SCH
[2022-05-31] MEDS ORDERED: ROCURONIUM 50 MG/5 ML VIAL IV ONE (09:37)
[2022-05-31] MEDS ORDERED: LIDOCAINE 2% MPF 5 ML VIAL ONE (09:37)
[2022-05-31] MEDS ORDERED: FENTANYL CITR 100 MCG/2 ML ONE ×2 (09:37→15:42)
[2022-05-31] MEDS ORDERED: propofoL 200 MG/20 ML VIAL IV ONE (09:37)
[2022-05-31] MEDS ORDERED: ONDANSETRON 4 MG/2 ML VIAL ONE (09:37)
[2022-05-31] MEDS ORDERED: MIDAZOLAM HCL 2 MG/2 ML INJ ONE (09:37)
[2022-05-31] MEDS ORDERED: SCOPOLAMINE HYDROBROMIDE PATCH TD ONE (09:50)
[2022-05-31] MEDS ORDERED: CEFAZOLIN SODIUM 2 GM/VIAL ONE (09:50)
[2022-05-31] MEDS ORDERED: CEFAZOLIN SODIUM 1 GM/VIAL ONE ×3 (09:50→14:43)
[2022-05-31] MEDS ORDERED: Ringers Lactate 1,000 ML IV ONE ×2 (09:51→15:48)
[2022-05-31] MEDS ORDERED: NA CHLORIDE 0.9% 100 ML ONE (10:30)
[2022-05-31] MEDS ORDERED: EPHEDRINE SULF 50 MG/ML VIAL ONE (11:12)
[2022-05-31] MEDS ORDERED: dexAMETHasone 4 MG/ML VIAL ONE (11:23)
[2022-05-31] MEDS: BUPIVACAINE 0.25% PF 30 ML VIAL ONE ×2 (11:25→11:42)
[2022-05-31] MEDS ORDERED: NS 0.9% VIAL 10 ML ONE (11:36)
[2022-05-31] MEDS ORDERED: VECURONIUM 10 MG/VIAL IV ONE (11:36)
[2022-05-31] MEDS: VASOPRESSIN 20 UNIT/ML VIAL ONE ×3 (11:46→15:30)
[2022-05-31] MEDS: Ringers Lactate 1,000 ML IV ONE ×2 (13:11→13:14)
[2022-05-31] MEDS ORDERED: LIDOCAINE 1% W/EPI 1:100,000 50 ML MDV ONE (15:44)
[2022-05-31] MEDS ORDERED: ACETAMINOPHEN 500 MG TAB PO PRN (16:51)
[2022-05-31] MEDS ORDERED: MORPHINE 2 MG/ML SYR IV PRN (16:51)
[2022-05-31] MEDS ORDERED: ONDANSETRON 4 MG/2 ML VIAL IV PRN (16:51)
[2022-05-31] MEDS ORDERED: HYDROCODONE/APAP 5/325 MG TAB PO PRN (16:51)
[2022-05-31] MEDS ORDERED: PROMETHAZINE INJ 25 MG/ML AMP IV PRN (16:51)
[2022-05-31] MEDS: Ringers Lactate 1,000 ML IV SCH ×2 (17:00→21:53)
[2022-05-31] MEDS ORDERED: HOME MED 1 EA UNK (Estradiol [Estradiol] 42.5 GM Cream.Appl) VAG SCH (17:00)
--- NOTE | 2022-05-31 17:02 | P.BOP ---
Preoperative diagnosis: pelvic organ prolapse, stage 3 posterior enterocele AMOL Postoperative diagnosis: post>>ant wall defects, apical and posterior enterocele, AMOL Primary procedure: Lapsc SCP, posterior wall, enterocele repairs, perineorrhaphy, TVT-O Secondary procedure: cysto [employer] Coordinator: Edilia Morales Estimated blood loss: 100 Specimen: none Findings: ov,tubes absent,-2/+3/+3/5.5/mod/11/+3/+5/na,large enterocele apical, post Anesthesia: General Complications: None Drain(s): Urinary catheter, Other (vaginal packing) Implants: Upsylon and TVT-o Fluids & blood products: 2400, UO 300 Transferred to: Recovery Room Condition: Good
--- OUTSIDE RECORDS SUMMARY | 2022-05-31 17:14 | XMS REPORT | Continuity of Care Document ---
:1950 Author Organization [facility] t Address [facility] [place] [address] Care Team Providers Name Role Phone STEWART GRANDA Primary Care Physician Unavailable KJ GAMEZ K.HYamilka Attending Clinician Unavailable FARHAD MATOS Attending Clinician Unavailable FARHAD MATOS Attending Clinician Unavailable Kj Gamez MD K.H. Attending Clinician Doctor Unassigned, [place] Attending Clinician Unavailable DORINA LUIS M.D. Attending Clinician Unavailable RADIOLOGY Attending Clinician Unavailable Radiology Attending Clinician Unavailable MONIKA LAYNE M.D. Attending Clinician Unavailable DR JOCELYN DEL TORO Attending Clinician Unavailable DORINA LUIS Admitting Clinician Unavailable DR JOCELYN DEL TORO Admitting Clinician Unavailable Payers Payer Name Policy Type Policy Number Effective Date Expiration Date S kelly AETNA MANAGED [id number] 2020 MEDICARE PPO-RODRIGO 00:00:00 Problems Condition Condition Condition Status Onset Resolution Last Treating Co mments Source Name Details Category Date Date Treatment Clinician Date No known No known Disease Unive rs active active ity of problems problems [facility] Amaurosis Amaurosis Problem Active [facility] fugax [...] Quantity Comments Source Exposure to Not sure [facility]-CoV-2 [facility] (event) [place] Tobacco use and 2020-07-20 2020-07-20 Never used Universit y of exposure 00:00:00 00:00:[address] [facility] Alcohol intake 2020-07-20 2020-07-20 Current drinker Unive rsity of 00:00:00 00:00:00 of alcohol [facility] (finding) [place] Alcohol Comment 2016-09-26 2016-09-26 Approx. 3 Universit y of 00:00:00 00:00:00 glasses of wine [place] [facility] ical daily Branch Sex Assigned At [birth year] Universit y of 00:00:00 00:00:[address] [facility] Smoking Status Start Date Stop Date Source Never smoker [facility] Medications Ordered Filled Start Stop Current Ordering Indication Dosage Frequency Signature Comments Components Source Medication Medication Date Date Medication? Clinician (SIG) Name Name lisinopril Yes 30mg Take 30 mg U nivers 30 mg 5-19 by mouth ity of tablet 14:48: daily. [address] lisinopril Yes 30mg Take 30 mg U nivers 30 mg 5-19 by mouth ity of tablet 14:48: daily. [address] aspirin 81 Yes 81mg Take 81 mg U nivers mg EC 5-19 by mouth ity of tablet 14:48: daily. [address] aspirin 81 Yes 81mg Take 81 mg U nivers mg EC 5-19 by mouth ity of tablet 14:48: daily. [address] omega-3s-dh Yes Take by Uni vers a-epa-fish 5-19 mouth. ity of oil 14:48: [place] (OMEGA-3 00 [facility] FISH OIL) Branch 300-1,000 mg Cap omega-3s-dh Yes Take by Uni vers a-epa-fish 5-19 mouth. ity of oil 14:48: [place] (OMEGA-3 00 Medical FISH OIL) Branch 300-1,000 mg Cap tc 2020- No [id number] 42.2mCi 42.2 Unive rs 99m-tetrofo 08-23 millicurie i ty of smin 17:15: 17:12 , [place] ([facility]) 00 :00 Intravenou Medi lila injection s, ONCE, 1 Bran ch 42.2 dose, Tue millicurie 08/23/20 at 1215, Routine tc 2020- No [id number] 16.5mCi 16.5 Univ ers 99m-tetrofo 08-23 millicurie i ty of smin 15:30: 15:20 , [place] ([facility]) 00 :00 Intravenou Medi lila injection s, ONCE, 1 Bran ch 16.5 dose, Tue millicurie 08/23/20 at 1030, Routine lisinopril Yes 30mg Take 30 mg U nivers 30 mg 4-07 by mouth ity of tablet 16:51: daily. [place] [facility] levothyroxi Yes 50ug Take 50 [...] by mouth ity of tablet 16:51: daily. [place] [address] Medical Branch lisinopril Yes 30mg Take 30 mg U nivers 30 mg 4-07 by mouth ity of tablet 16:51: daily. [place] [address] Medical Branch levothyroxi Yes 50ug Take 50 [...] 2-08 by mouth. ity of tablet 00:00: [place] [facility] atorvastati 2020-0 Yes 40mg Take 40 mg Univers n 40 mg 2-08 by mouth. ity of tablet 00:00: [facility] atorvastati 0 Yes 40mg Take 40 mg Univers n 40 mg 2-08 by mouth. ity of tablet 00:00: [facility] atorvastati 0 Yes 40mg Take 40 mg Univers n 40 mg 2-08 by mouth. ity of tablet 00:00: [facility] atorvastati 2020-0 Yes 40mg Take 40 mg Univers n 40 mg 2-08 by mouth. ity of tablet 00:00: [facility] atorvastati 0 Yes 40mg Take 40 mg Univers n 40 mg 2-08 by mouth. ity of tablet 00:00: [place] [facility] atorvastati 0 Yes 40mg Take 40 mg Univers n 40 mg 2-08 by mouth. ity of tablet 00:00: [facility] atorvastati 0 Yes 40mg Take 40 mg Univers n 40 mg 2-08 by mouth. ity of tablet 00:00: [facility] atorvastati 0 Yes 40mg Take 40 mg Univers n 40 mg 2-08 by mouth. ity of tablet 00:00: [facility] atorvastati 0 Yes 40mg Take 40 mg Univers n 40 mg 2-08 by mouth. ity of tablet 00:00: [facility] atorvastati 0 Yes 40mg Take 40 mg Univers n 40 mg 2-08 by mouth. ity of tablet 00:00: [facility] atorvastati 0 Yes 40mg Take 40 mg Univers n 40 mg 2-08 by mouth. ity of tablet 00:00: [facility] gadobenate 0 2020- No .2mL/kg 0.2 mL/kg, [...] by mouth ity of tablet 15:53: daily. [address] lisinopril Yes 30mg Take 30 mg U nivers 30 mg 6-16 by mouth ity of tablet 15:53: daily. [address] levothyroxi Yes 50ug Take 50 Uni vers ne 50 mcg 6-16 mcg by ity of tablet 15:53: mouth [place] [address] every Medical morning. Branch busPIRone Yes 10mg Take 10 mg Un drake 10 mg 6-16 by mouth 2 ity of tablet 15:53: (two) [place] 35 times Medical daily. Branch aspirin 81 Yes 81mg Take 81 mg U nivers mg EC 6-16 by mouth ity of tablet 15:53: daily. [address] lisinopril Yes 30mg Take 30 mg U nivers 30 mg 6-16 by mouth ity of tablet 15:53: daily. [address] levothyroxi Yes 50ug Take 50 Uni vers ne 50 mcg 6-16 mcg by ity of tablet 15:53: mouth [place] [address] every Medical morning. Branch busPIRone 2017 Yes 10mg Take 10 mg Un drake 10 mg 6-16 by mouth 2 ity of tablet 15:53: (two) [place] 35 times Medical daily. Branch aspirin 81 Yes 81mg Take 81 mg U nivers mg EC 6-16 by mouth ity of tablet 15:53: daily. [address] lisinopril Yes 30mg Take 30 mg U nivers 30 mg 6-16 by mouth ity of tablet 15:53: daily. [address] levothyroxi Yes 50ug Take 50 Uni [...] by mouth ity of tablet 15:53: daily. [address] lisinopril Yes 30mg Take 30 mg U nivers 30 mg 6-16 by mouth ity of tablet 15:53: daily. [address] levothyroxi Yes 50ug Take 50 Uni vers ne 50 mcg 6-16 mcg by ity of tablet 15:53: mouth [place] 35 every Medical morning. Branch busPIRone Yes 10mg Take 10 mg Un drake 10 mg 6-16 by mouth 2 ity of tablet 15:53: (two) [place] 35 times Medical daily. Branch Vital Signs Vital Name Observation Time Observation Value Comments Source Systolic blood 2020-08-31 125 mm[Hg] University of pressure 14:45:[address] [facility] Diastolic blood 2020-08-31 73 mm[Hg] University o f pressure 14:45:[address] [facility] Heart rate 2020-08-31 65 /min [facility] 14:45:[address] [facility] Respiratory rate 2020-08-31 18 /min [facility] 14:45:[address] [facility] Body height 2020-08-31 165.1 cm University 14:45:[address] [facility] Body weight 2020-08-31 111.403 kg University 14:45:[address] [facility] BMI 2020-08-31 40.87 kg/m2 University 14:45:[address] [facility] Oxygen saturation 2020-08-31 95 /min [facility] in Arterial blood 14:45:00 [facility] by Pulse oximetry Branch Systolic blood 2020-07-20 124 mm[Hg] University of pressure 20:54:[address] [facility] Diastolic blood 2020-07-20 85 mm[Hg] University o f pressure 20:54:[address] [facility] Heart rate 2020-07-20 85 /min [facility] 20:54:[address] [facility] Body weight 2020-07-20 111.177 kg University of 20:54:[address] [facility] BMI 2020-07-20 40.79 kg/m2 [facility] 20:54:[address] [facility] Oxygen saturation 2020-07-20 97 /min [facility] in Arterial blood 20:54:00 [facility] by Pulse oximetry Branch Systolic blood 2019-06-23 98 mm[Hg] Location: [facility] Physicia ns pressure 08:31:00 Position: Sitting Diastolic blood 2019-06-23 65 mm[Hg] Location: [facility] Physici ans pressure 08:31:00 Position: Sitting Body height 2019-06-23 65 [in_us] [facility] 08:31:00 Weight 2019-06-23 245 [lb_av] [facility] 08:31:00 Body mass index 2019-06-23 40.77 kg/m2 [facility] (BMI) [Ratio] 08:31:00 Heart Rate 2019-06-23 76 /min [facility] 08:31:00 Procedures Procedure Date / Time Performing Clinician Source Performed NM MYOCARDIUM PERFUSION 2020-08-23 18:52:00 Franco, Sendmarycarmen K.H. [facility] STRESS AND REST Medical Branch NM MYOCARDIUM PERFUSION 2020-08-23 18:52:00 Gamez, Sendil K.H. [facility] STRESS AND REST Medical Branch NM MYOCARDIUM PERFUSION 2020-08-23 18:52:00 Gamez, Sendil K.H. [facility] STRESS AND REST Medical Branch NM MYOCARDIUM PERFUSION 2020-08-23 18:52:00 Gamez, Sendil K.H. [facility] STRESS AND REST Medical Branch ID ELECTROCARDIOGRAM, 2020-07-20 16:55:18 Franco[facility] REF[facility]- 2020-06-20 06:01:00 Doctor Unassigned, No [facility] REQUEST/RESPONSE Name Medical Branch MR ANGIOGRAM HEAD WO 2019-09-10 15:22:39 Dorina Luis [facility] CONTRAST Medical Branch ASSIGNMENT OF BENEFITS 2019-09-10 14:26:53 Doctor Unassigned, No [facility] Name [facility] Branch [QL] LIPID PANEL 2019-07-29 00:00:00 [facility] MR BRAIN W WO CONTRAST 2019-07-15 15:12:44 Dorina Luis [facility] [UTP] Neurosonology Lab 2019-06-23 00:00:00 [facility] [QLH] SED RATE BY 2019-06-23 00:00:00 [facility] MODIFIED [place] [QLH] C-REACTIVE PROTEIN 2019-06-23 00:00:00 [facility] MRI Brain w/wo contrast 2019-06-23 00:00:00 [facility] [id number] MRA Brain without 2019-06-23 00:00:00 [facility] contrast [id number] [QL] SED RATE BY 2019-06-23 00:00:00 [facility] MODIFIED [place] Plan of Care Planned Activity Planned Date Details Comments Source Diagnostic Test 2019-06-23 [[facility]] Neurosonology [facility] Pending 00:00:00 Lab [code = [UTP] Neurosonology Lab] Future Scheduled MRA Brain without Before next [facility] Test contrast [id number] [code appointment = 51650] Future Scheduled MRA Brain without Approx [id number] [facility] Test contrast 08712 [code = 23829] Future Scheduled [QL] LIPID PANEL Approx [id number] [facility] Test [code = [QL] LIPID PANEL] Future Scheduled [QL] LIPID PANEL Approx [id number] [facility] Test [code = [QL] LIPID PANEL] Encounters Start End Encounter Admission Attending Care Care Encounter Source Date/Time Date/Time Type Type Clinicians Facility Department ID 2021-08-31 2021-08-31 Outpatient Chelsea GAMEZ [facility] [id number] Univers 10:00:00 10:00:00 SENDIL [facility] 2021-08-15 2021-08-15 Outpatient Chelsea GAMEZ [facility] [id number] Univers 09:00:00 09:00:00 [facility] 2020-12-02 Outpatient FARHAD GRAYSON [facility] [id number] Univers 13:00:00 13:00:00 FARHAD MATOS i ty [facility] 2020-10-14 2020-10-14 Outpatient R FARHAD MATOS [facility] [id number] Univers 09:00:00 09:00:00 FARHAD MATOS i ty [facility] 2020-08-31 2020-08-31 Office Franco [facility] [id number] Univers 09:36:47 10:08:58 Visit Sendil Andrew [place] [id number] ity [id number] [phone] Wi dical [facility] 059 Branch [facility] 2020-08-31 2020-08-31 [facility] [id number] Univers 09:30:00 09:30:00 SENDIL ity of [facility] 2020-08-23 2020-08-23 [facility] [id number] Univers 09:05:51 09:05:51 Encounter Sendil Andrew [place] [id number] [id number] [phone] [address] 2020-08-23 2020-08-23 [facility] [id number] Univers 09:04:58 09:04:58 Encounter Sendil Andrew [place] [id number] [place] [id number] [phone] [address] 2020-08-23 2020-08-23 [facility] [id number] Univers 09:03:22 09:03:22 Encounter Sendil Andrew [place] [id number] [place] [id number] [phone] [address] 2020-08-23 2020-08-23 [facility] [id number] Univers 08:59:35 09:02:00 Encounter Sendil Andrew [place] [id number] [place] of [place] [id number] [phone] [address] 2020-08-23 2020-08-23 [facility] [id number] Univers 08:59:35 09:02:00 SENDIL ity of [facility] 2020-08-10 2020-08-10 [facility] [id number] Univers 08:00:00 08:00:00 SENDIL ity [facility] 2020-07-29 2020-07-29 [facility] [id number] Univers 00:00:00 00:00:00 Sendil Andrew Valderrama [id number] [id number] [phone] Wi dical nal [address] [place] [address] 2020-07-20 2020-07-20 Office [facility] 1.2.840.114 [id number] Univers 11:43:06 12:24:34 Visit Sendil Andrew Valderrama [id number] [id number] [phone] Wi dical nal [address] [place] [address] 2020-07-20 2020-07-20 Outpatient R FRANCO [facility] [id number] Univers 11:30:00 11:30:00 SENDIL ity [facility] 2020-06-20 2020-06-20 Orders Doctor OSMAR 1.2.840.114 [id number] Univers 00:00:00 00:00:00 Only Unassigned, TITO [id number] ity of [place] [facility] 4.2.7.2.686 Paul as [phone] [address] 2020-06-19 2020-06-19 Outpatient [facility] [id number] Univers 13:30:00 13:30:[address] [facility] 2019-11-03 2019-11-03 Appointmen R[facility]SEL [facility] Neurology - [id number] [place] 14:30:00 14:30:00 t; DORINA LUIS [place] [facility], M.D. [facility] 2019-09-10 2019-09-10 Outpatient R RADIOLOGY [facility] [id number] Univers 09:33:46 23:59:[address] [facility] 2019-09-10 2019-09-10 Hospital Radiology [facility] 1.2.840.114 [id number] Univers 09:33:00 23:59:00 Encounter [place] [id number] ity of [place] [id number] [facility] [phone] [facility] 804 Branch 2019-09-10 2019-09-10 [facility] Radiology [facility] 1.2.840.114 [id number] 09:33:00 23:59:00 Encounter [place] [id number] [place] 4.2.7.2.686 [place] [id number] [id number] 2019-09-10 2019-09-10 Orders Doctor OSMAR 1.2.840.114 [id number] Univers 00:00:00 00:00:00 Only Unassigned, TITO [id number] ity of [place] [facility] 4.2.7.2.686 [facility] [phone] [address] 2019-09-10 2019-09-10 Orders Doctor OSMAR 1.2.840.114 [id number] 00:00:00 00:00:00 Only Unassigned, [place] [id number] [place] [facility] 4.2.7.2.68 [phone] [id number] 2019-07-29 2019-07-29 Appointmen BENITO LUIS Neurology - [id number] [place] 09:30:00 09:30:00 t; DORINA LUIS [facility] ginette BARROS M.D. [facility] Evaristo Yolo 2019-07-15 2019-07-15 Outpatient R RADIOLOGY [facility] [id number] Univers 09:04:33 23:59:[address] [facility] 2019-07-15 2019-07-15 Hospital Radiology [facility] 1.2.840.114 [id number] Univers 09:00:00 23:59:00 Encounter [place] [id number] ity of [place] [id number] [facility] [phone] [address] 2019-07-15 2019-07-15 Hospital Radiology [facility] 1.2.840.114 [id number] 09:00:00 23:59:00 Encounter [place] [id number] [place] [id number] [place] [id number] 2019-06-23 2019-06-23 Appointmen BENITO LAYNE Neurology - [id number] [place] 10:00:00 10:00:00 t; Cecelia FRANK i, M.D. Medical Deanne Grey M.D. 2019-06-23 2019-06-23 Appointmen RUSSEL BENITO Neurology - [id number] [place] 08:00:00 08:00:00 t; DORINA LUIS [place] [facility] CH[facility]ST[facility], M.D. Medical ans Evaristo Yolo 2018-05-21 2018-05-21 Emergency E AVLERTO, [facility] [id number] [facility] 17:27:00 19:30:00 [facility] Results Test Description Test Time Test Results Result Source Comments Comments NM MYOCARDIUM 2020-08-13 Impression: Normal Uni versity of PERFUSION STRESS 1 myocardial perfusion [facility] AND REST 22:48:55 scan with preserved Bran [...] DATE AND (test code = 2092-) TIME: [id number] HDL CHOLESTEROL; Normal (test 60 mg/dl > OR = 50 N SPECIMEN RECEIVED DATE AND code = 2084-9) TIME: 20190914 TRIGLYCERIDES; Normal (test 79 mg/dl <150 N SPECIMEN RECEIVED DATE AND code = 2571-8) TIME: [id number] LDL-CHOLESTEROL; Normal (test 56 {MG/DL LILA} N Reference range: <100 code = 32367-7) Desirable ra nge <100 mg/dL for primary [...] LDL-C. Jeffrey SS et al . NANDA. 2013;310(75): 7 06-3139 (http://educati on.QuestDiagno stics.CorporateWorld/faq/F AQ164)SPECIMEN RECEIVED DATE A ND TIME: CHOL/HDLC [...] erapeutic option.SPECIMEN RECEIVED DATE AND TIME: 61710121 [facility] ANGIOGRAM HEAD WO [id number] 16:45:26 No high-grade stenosis or aneurysm in [...] eye, TIA COMPARISON: MRI 07/15/2019 TECHNIQUE: 3-D poyd-he-pqehnt of the head was performed without theadministration of IV gadolinium. FINDINGS: The PICA origins are visualized bilaterally. The basilar artery is normalin caliber. The superior cerebellar arteries are unremarkable. originofthe right KNOCKOUT MAN is noted. The left KNOCKOUT MAN is patent. A left posteriorcommunicating artery is faintly visualized. The distal cervical, petrous, cavernous and supraclinoid internal carotidarteries are patent.The anterior and middle cerebral arteries are widelypatent. ?An anterior communicating artery is visualized. No parenchymal signal abnormalities are visualized on the included portionsof the source images. A prominent perivascular space in the leftparahippocampal region is unchanged. [facility], Radiant Results Inft User - 09/10/2019 11:46 AM CDTEXAM: MR ANGIOGRAM HEAD WO CONTRASTTECHNIQUE: Multiplanar multisequence MRI of the brain was performed withoutIV contrast.HISTORY: Amaurosis fugax of right eye, TIACOMPARISON: MRI 07/15/2019TECHNIQUE: 3-D hfmt-yg-pxcwsi of the head was performed without theadministration of IV gadolinium.FINDINGS:The PICA origins are visualized bilaterally. The basilar artery is normalin caliber. The superior cerebellar arteries are unremarkable. originof the right KNOCKOUT MAN is noted. The left KNOCKOUT MAN is patent. A left posteriorcommunicating artery is [...] reviewed this study and agree with theabove report.[facility] B[facility] W WO [id number] 15:59:33 No acute intracranial findings. Preliminary Report [...] reviewed this study and agree with theabove report.[facility]] SED RATE BY MODIFIED [id number] 14:10:01 Test Item Value Reference Range Interpretation Comments Sedimentation Rate (test code = 20 {mm/hr} 0-20 97458-9) [facility]] C-REACTIVE [id number] 13:55:01 Test Item Value Reference Range Interpretation Comments CRP (test code = CRP) 9.9 mg/L <=2.9 [facility] PhysiciansCT HEAD W/O CONTRAST *WW*2018-05-21 18:50:17EXAM: CT [...] 2018-05-21 18:42:36EXAM: Left forearm series, 2 viewsLocation: [id number]: PainCOMPARISON: None.DISCUSSION: Frontal and lateral views of the left forearm are submitted. Nofracture, dislocation, or lytic or blastic lesions are identified. IMPRESSION: No acute bony abnormalities.XR ELBOW LFT COMPLETE 3 VIEWS2018-05-21 18:41:58EXAM: Left elbow series, 3 viewsLocation: [id number]: FallsCOMPARISON: None.DISCUSSION: Frontal, oblique, and lateral views of the left elbow aresubmitted. No fracture, dislocation, or lytic or blastic lesions areidentified. No joint effusion is seen.IMPRESSION: No acute bony abnormalities.XR KNEE LEFT 3 VIEWS *WW*2018-05-21 18:37:58EXAM: Left knee series, 3 viewsLocation: [id number]: FallsCOMPARISON: None.DISCUSSION: Frontal, oblique, and crosstable lateral views of the left knee aresubmitted. No fracture, dislocation, or lyticor blastic lesions areidentified. No joint effusion is seen. A small quadriceps insertionenthesophyte is identified.
[2022-05-31 17:21] VITALS: O2SAT 99
[2022-05-31] MEDS: NITROFURAN MACRO 100 MG CAP PO SCH (21:53)
[2022-06-01] MEDS: Ringers Lactate 1,000 ML IV SCH ×2 (01:00→08:54)
--- NOTE | 2022-06-01 03:21 | OP ---
Date of Procedure: 05/31/2022 Surgeon: Ivelisse Torres MD Multi Operation Forming Machine Setter: Edilia Trevino. Preoperative Diagnoses: Recurrent pelvic organ prolapse stage III, posterior enterocele, stress urin john incontinence. Postoperative Diagnoses: Posterior greater than anterior wall defects apical and posterior enterocel e, stress urinary incontinence. Procedure: Laparoscopic sacral colpopexy, vaginal posterior wall and enterocele repairs, perineorrha phy, transvaginal tape-O, and cystoscopy. Estimated Blood Loss: 100. Urine Output: 300. Specimens: None. Complications: None. Drains: Ling catheter. Implants: Implanon Y-mesh and TVT-O. Fluids: 2400. Condition: Stable. Findings: Ovaries and tubes were absent. The patient is status post hysterectomy. Her Pop-Q was -2 , +3, +3, 5.5, moderate, 11 +3, +5, and a large enterocele apical and posterior wall, patent ureters. They were very displaced inferiorly. After the procedure was performed, her Pop-Q was -3, -3, and -8, 3.5 thick, and on rectovaginal exam, there was excellent support without any defect. The distal 2/5th of the wall was repaired through the vaginal access. An upper 3/5th using the sacral colpopexy posterior Y-mesh. Perineorrhaphy was performed in the usual fashion and the sling without any probl ems. On the slim line mesh fixation distally, both anterior and posterior were with 2-0 Prolene sutures an d then V-Loc in the middle. The posterior attachment was 7 point fixation after the 3 distal sutures , PDS sutures x2, and 3 V-Loc sutures were placed in the posterior wall. There was slightly excess m esh that was folded and sutured. A small amount of peritoneum left at the apex where the crotch of t he wide mesh was anteriorly. The fixation was with 2 Prolene sutures in the distal and lateral aspec ts, central V-Loc suture, and 2 lateral 2-0 PDS sutures. The fixation of the sacrum was with 1 Exeter- Paul suture and then 5 ProTacs. Mesh was retroperitonealized well completely with V-Loc. The posterior wall of the vagina were short er and somewhat as it was sutured to the graft. The patient is a 72-year-old female with a prior history of prolapse. She had a hysterectomy in 2013 . She had prolapse and then she had later a bilateral salpingo-oophorectomy with anterior-posterior repair. She has been referred from Dr. Ceja's office as she has noticed a bulge over the past 2 year s and unable to empty her bladder well, wakes up with nocturnal frequency, and has noticed slight spo tting with heavy lifting. On examination, the patient was found to have a significant prolapse and a significant postvoid residual of 400. There was a posterior vaginal wall laceration that was leadin g to her bleeding and this is most likely from trauma due to her prolapse. We discussed about all th e different options, benefits, and risks of procedures which included the vaginal repair and a laparo scopic repair. Given that this is a recurrence of her procedure, I offered her laparoscopic repair a s she had a significant apical enterocele and a larger posterior wall defect in the anterior wall def ect, my decision was to perform an apical synthetic graft augmented repair in order for this to last longer, so she understood all the benefits and risks and alternatives of these both repairs and she w as consented for sacral colpopexy using synthetic Y mesh. She also has an occult AMOL and did the uro dynamic study. There is no indication of palpable mesh on examination, so as this was discovered, it was consented for mid urethral sling as well. After informed consent was verified, she was brought back to the OR. She had a medical clearance fro m her primary care. 3 g of Ancef were given. SCDs were placed. General anesthesia was given, she w as placed in dorsal lithotomy position on the table. Abdomen was prepped with ChloraPrep and vulva, vagina, and perineum with Betadine. The vaginal manipulator for sacral colpopexy was placed in the v agina and a Ling was introduced to drain the bladder and attached to retrograde filling to _ bag that was emptied 300. This area was draped. A 1 cm infraumbilical incision made with scalpel using open laparoscopy technique. Fascia was incise d, tagged with 0 Vicryl sutures. Peritoneum entered sharply. Javier introduced and after adequate i nsufflation, site of entry was checked and was unremarkable. Two right and left 8 ports were placed. A 5 left upper quadrant port and 10 suprapubic port was placed under direct vision. There was blee ding from all port sites while making the skin incision, but they were all cauterized with the cauter y and were hemostatic. Marcaine was injected before the ports were placed. After survey of the abdomen, the sigmoid colon was significantly redundant, so I went ahead and tagge d the epiploicae of the sigmoid colon with 3-0 Monocryl sutures, and brought out through the left upp er quadrant lateral and the Erich-Jeremy needle entry and this was held on a clamp. The sacral promontory was well visualized and the bowel was retracted superiorly into the upper abdom en safely. The peritoneum was well visualized all the way to the lateral wall. Both the colon right margin, internal iliac, ureters were all traced from the pelvic brim to the pelvic floor. Then, on placing the vaginal manipulator, it was very clear that there was a larger posterior defect significa ntly larger than what was preoperatively evaluated. Please look at the pop-Q for above. So, the per itoneum was incised right above the level of the vaginal cuff. Then, the bladder was dissected sharp ly with the help of scissors and the port with push-spread technique, there was significant scarring here. This was then taken down the sharp dissection as well as with bipolar assisted cautery. Once this was done and the bladder was dissected at least 3.5 cm from the apex, I thought this was an adeq uate anterior vaginal wall, definitely had the apex with peritoneum still aligned. This is the apica l posterior wall. It was very difficult to keep the anatomical apex at the apex, so this was shifted slightly posteriorly so that the mesh would was positioned with the crotch of the Y, aligned at leas t 2 cm, which is in the posterior wall. Once the anterior dissection was completely done, the posterior dissection was done by opening the pe ritoneum in a transverse fashion from [id number] and sharp dissection was performed staying close t o the posterior vaginal wall without opening without getting too thin on the vaginal wall, all the wa y down to at least 8 cm. Once this was done, lateral dissection was performed as well to open up the space for suturing the mesh. Peritoneum was incised laterally starting at the sacral promontory staying in between the right later al margin of the bowel and the ureter. Space was created. Dissection was kept superficial and perit oneum was incised protecting the sympathetic nerve plexus. This incision was taken and connected to the posterior wall dissection so that the mesh could be retr operitonealized. Sacral promontory was opened up and the connective tissue and the loose areolar tissue and fat were d issected down in layers and once the anterior longitudinal ligament was exposed, the midline vessels were cauterized with the help of bipolar, so that they would not bleed, and the entire area for sutur ing was well exposed. The Epsilon Y-mesh was brought in, 2-0 V-Loc was used so that the distal posterior fixation in the ce nter. [id number] stitch was taken through the graft. On the 2 lateral aspects, 2-0 Prolene was used, 2 simple sutures were placed without entering the vag inal epithelium. Care was taken to keep the level in the mesh as flat as possible. 2-0 PDS sutures were placed proximally on the posterior wall at least 3 cm inferior to the Y-crotch a nd the mesh was laid flat. The anterior wall was suspended to the anterior arm of the Y-mesh with tw o 2-0 Prolene sutures at the distal aspects on both sides in a central V-Loc suture and then 2 PDS deleon tures on either sides on the anterior wall inferior to the V-fashion apex. After this was fixated, I noticed that there was redundant mesh in the posterior wall that would not straighten out and the me sh was tensioned to the sacrum, so this was folded down and 3 V-Loc sutures and 0 Vicryl suture were used to keep this flat and attached to the posterior wall, so the tensioning would be appropriate in the posterior wall. This also helped shorten the vaginal wall and the graft was attached to the anterior longitudinal lig ament with a simple Exeter-Paul on a CT 2 needle as I did not feel that the tensioning would be appropri ate with just simple sutures. The ProTac was used to tack down from [id number] and folded over and tacked again with 2 extra flavio. Once this was done, there was an excellent suspension. Vaginal exam was performed. The apex seemed well positioned and well suspended. The entire peritoneum was closed with the help of 2-0 V-Loc starting from the sacral promontory down to the right lateral aspect and then starting on the left and closing onto the right side of the keyla toneal opening in a transverse fashion. Once everything was repaired, generalized pictures were take n. Thorough irrigation and suction were performed and all trocars removed under direct vision. Fasc ia at the umbilicus was closed with 0 Vicryl suture, was tagged on the edges, tied to each other and suprapubically. A deep stitch with 0 Vicryl was placed to close the incision as it was very hard to get to the fascia. All skin incisions were closed with the help of interrupted 4-0 Monocryl sutures. Went down to the vaginal repair, posterior wall was exposed, hymenal ends were remnants were picked u p with 2 Allis clamps, injected with dilute vasopressin, which was not effective and so lido with epi was used; erick-shaped incision placed and distal 3 cm epithelium was taken down. The perineum wa s opened up. The perineal body structures were exposed by raising the epithelial edges and the recto vaginal septum was dissected down and the posterior enterocele was dissected as well. The posterior enterocele was closed by draining the fascia here in the distal 2/5th of the posterior wall and reatt aching it to the graft superiorly. 2-0 PDS was used to do this. Then, the rest of the posterior rec tovaginal septum was closed with the help of 2-0 PDS and then attached to the perineal body that was reconstructed with 2-0 Vicryl. Then, slight trimming of the vaginal epithelium was done for good judy osition and this was closed with the help of 2-0 Vicryl in a continuous running fashion. Then at the perineum reconstruction with 2 further 2-0 Vicryl sutures was done and then 3-0 Vicryl was used to c lose the perineal incision. Rectal exam was performed. No evidence of any trauma to the rectum. Cystoscopy was performed after the sling was done and there was no evidence of any obstruction to the ureters, both the ureteric moses fices had strong jets of urine from them and no foreign body in the bladder. Bladder was drained and Ling was replaced. Allis clamps were placed on either side of the mid urethral vaginal epithelium injected with lidocain e with epi 1.5 cm midline incision on the mid urethral area was made with a 15 blade, dissected later ally to the ipsilateral obturator space and once the membrane was perforated, the track was opened up , widened, after laid the mesh flap. This was done on both sides and mesh accommodation in the midli ne was also kept flat by opening of the incision adequate length. Then, wing guide was placed. Troc ar was applied past, hugging the inferior pubic ramus, I exited lateral to the groin fold placed 2 cm . The left side was slightly higher than the right, but avoiding the adductor longus tendon on both sides. The mesh was tensioned with the [place]. Once it was lying flat and not too tight, the plastic sheaths were pulled out. The arms were trimmed, flushed with skin, skin closed with the help of Derm abond. Central incision closed with the help of 3-0 Monocryl in a continuous running horizontal anthony ress fashion and cysto done as above. No foreign body or mesh in the bladder. Vaginal packing was d one and Ling was left in place. She was recovered from anesthesia and taken to PACU in stable condi tion. She will be here overnight for voiding trial tomorrow morning and discharged home. DONAVON/ANGELA Voice ID: [id number] Report ID: [id number]
[2022-06-01 06:21] LABS: Absolute Lymphocytes (CBC) 1.3 K/uL (0.7-4.9); Hematocrit 32.8 % (36.0-45.0); Lymphocytes % 15.2 % (15.3-44.8); MCV 92.8 fL (80-100); MPV 7.8 fL (7.6-11.3); RBC Red Blood Cell Count 3.53 M/uL (3.86-4.86)
[2022-06-01] MEDS ORDERED: LEVOTHYROXINE SOD 0.05 MG TABLET PO SCH (06:30)
[2022-06-01 06:31] LABS: Potassium 3.9 mmol/L (3.5-5.1)
[2022-06-01] MEDS: NITROFURAN MACRO 100 MG CAP PO SCH (08:53)
[2022-06-01 08:54] VITALS: BP 115/55
[2022-06-01] MEDS ORDERED: MULTIVITAMIN TAB PO SCH (09:00)
[2022-06-01] MEDS ORDERED: HOME MED 1 EA UNK (Lisinopril [Lisinopril] 40 MG Tablet) PO SCH (09:00)
[2022-06-01] MEDS ORDERED: lisinopriL 20 MG TAB PO SCH (09:00)
[2022-06-01] MEDS ORDERED: HOME MED 1 EA UNK (Multivitamin [Multivitamin] Tablet) PO SCH (09:00)
[2022-06-01] MEDS ORDERED: HOME MED 1 EA UNK (Potassium Gluconate [Potassium] 600 MG Tablet) PO SCH (09:00)
[2022-06-01 09:27] VITALS: TEMP 99.5
== END 2022-06-01 10:17 | disposition home or self-care (01) ==
LOC: OR 09:25 → 2ND 17:11
PROVIDERS: ADMIT Obstetrics & Gynecology; ATTEND Obstetrics & Gynecology
PROC: 0UUF0JZ Supplement Cul-de-sac with Synthetic Substitute, Open Approach (ICD-10-PCS; 2022-05-31)
PROC: 0TSD0ZZ Reposition Urethra, Open Approach (ICD-10-PCS; 2022-05-31)
PROC: 0USG4ZZ Reposition Vagina, Percutaneous Endoscopic Approach (ICD-10-PCS; 2022-05-31)
PROC: 0JUC0JZ Supplement of Pelvic Region Subcutaneous Tissue and Fascia with Synthetic Substitute, Open Approach (ICD-10-PCS; principal; 2022-05-31 10:30)
DX: N81.3 Complete uterovaginal prolapse (principal); N39.3 Stress incontinence (female) (male); I10 Essential (primary) hypertension; E78.00 Pure hypercholesterolemia, unspecified; N32.81 Overactive bladder; Z20.822 Contact with and (suspected) exposure to COVID-19
CPT/HCPCS: 57250; 57267; 57288; 57425; 87088; 85025 ×2; 81001; 87086; 80048 ×2; 36415 ×3; 86900; 86850; 85610; 86901; 85730; 94010; 87811; J2704; J1100; J2001; J2250; J3010 ×2; J2270; A4216; J7120 ×5; J2405; J0690 ×3; G0378; G0379